=== PATIENT | male | born 1965 | race Caucasian/White ===

== ENCOUNTER 2017-10-02 08:56 | Day surgery (SDC) | payer BC ==
[2017-09-25 13:40] VITALS: BMI 31.4
[2017-10-02] MEDS ORDERED: PROPOFOL 20 ML ONE ×2 (09:08)
[2017-10-02 11:10] VITALS: BP 125/73; PULSE 75
--- NOTE | 2017-10-07 13:20 | PATH ---
Surgical Pathology Report Patient Name: DESIRAE KIM [facility]. Rec. #: [id number] /Age/Gender: 1965 (Age: 52) / M Account: [id number] Location: [facility]-ENDOSCOPY Taken: 10/02/2017 Received: 10/02/2017 Reported: 10/07/2017 Physicians: Cristiane Mayorga M.D. Specimen(s) Received BX ASCENDING COLON Clinical History Preoperative diagnosis: Abdominal pain Postoperative diagnosis: Polyp Final Diagnosis ASCENDING COLON, BIOPSY: TUBULAR ADENOMA. Electronically Signed Danica Ron M.D. Gross Description Received in formalin, labeled "ascending polyp" are 6 gomes, irregular portions of soft tissue ranging from 0.1-0.4 cm. in greatest dimension. The specimens are submitted in toto in one cassette. 10/03/201710/03/2017
== END 2017-10-02 11:10 | disposition home or self-care (01) ==
LOC: FASU-ENDO 08:56
PROVIDERS: ATTEND Internal Medicine Gastroenterology
PROC: 0DBK8ZX Excision of Ascending Colon, Via Natural or Artificial Opening Endoscopic, Diagnostic (ICD-10-PCS; principal; 2017-10-02 10:16)
DX: Z86.010 Personal history of colon polyps (principal); Z80.0 Family history of malignant neoplasm of digestive organs; D12.2 Benign neoplasm of ascending colon
CPT/HCPCS: 88305-TC

== ENCOUNTER 2025-03-23 10:37 | Day surgery (SDC) | payer BC ==
[2025-03-17 15:16] VITALS: BMI 30.7
[2025-03-23 10:53] VITALS: RESP 16
[2025-03-23 12:36] VITALS: TEMP 98.2
[2025-03-23 13:07] VITALS: BP 135/80; PULSE 84
== END 2025-03-23 12:57 | disposition home or self-care (01) ==
LOC: FASU-ENDO 10:37
PROVIDERS: ATTEND Internal Medicine Gastroenterology
PROC: 0DBL8ZZ Excision of Transverse Colon, Via Natural or Artificial Opening Endoscopic (ICD-10-PCS; principal; 2025-03-23 12:01)
DX: Z12.11 Encounter for screening for malignant neoplasm of colon (principal); K64.8 Other hemorrhoids; K57.30 Diverticulosis of large intestine without perforation or abscess without bleeding; Z86.0100 Personal history of colon polyps, unspecified; D12.3 Benign neoplasm of transverse colon
CPT/HCPCS: 88305-TC